=== PATIENT | male | born 1995 | race Caucasian/White ===

== ENCOUNTER 2018-08-25 22:08 | Emergency (ER) | payer MEDICAID, OTHER ==
--- NOTE | 2018-08-26 02:29 | RADIOLOGY REPORT (SQ) ---
EXAM DESCRIPTION: XR CHEST 2 VIEWS COMPLETED DATE/TME: 08/26/2018 01:29 CLINICAL HISTORY: 23 years, Male, SOB Comparison: None FINDINGS: No focal lung consolidation. No pleural effusion. No pneumothorax. Cardiac and mediastinal silhouette is unremarkable. No acute osseous abnormality. Soft tissues are unremarkable. IMPRESSION: No acute findings. No focal lung consolidation.
--- NOTE | 2018-08-26 02:54 | ER Document Report ---
HPI - HPI Patient complains to provider of: cough Time Seen by Provider: 08/26/18 01:29 Pain Level: 0 Context: Patient is a 23-year-old male presents to the emergency department for generalized cough and congestion for the last 2 weeks. Patient is denying any fever, nausea, vomiting, abdominal pain, chest pain, shortness of breath. Patient states he is worried that he may have pneumonia. States he has been using his friend's albuterol treatments and after his albuterol treatment states he typically feels better which is why he presents to the emergency room. Past medical history: None Medications: None Allergies: None - CONSTITUTIONAL Constitutional: DENIES: Fever, Chills - RESPIRATORY Respiratory: REPORTS: Coughing. DENIES: Trouble Breathing Past Medical History - General Information source: Patient - Social History Smoking Status: Current Every Day Smoker Frequency of alcohol use: Rare Drug Abuse: None Family History: Reviewed & Not Pertinent Patient has suicidal ideation: No Patient has homicidal ideation: No Renal/ Medical History: Denies: Hx Peritoneal Dialysis - Immunizations Hx Diphtheria, Pertussis, Tetanus Vaccination: - unk Vertical Provider Document - CONSTITUTIONAL Agree With Documented VS: Yes Notes: GENERAL: Alert, interacts well. No acute distress. HEAD: Normocephalic, atraumatic. No frontal or maxillary sinus tenderness noted EYES: Pupils equal, round, and reactive to light. Extraocular movements intact. ENT: Oral mucosa moist, tongue midline. Nares patent, TM's intact, nonerythematous, nonbulging bilaterally. NECK: Full range of motion. Supple. Trachea midline. No lymphadenopathy appreciated LUNGS: Clear to auscultation bilateral apexes, no wheezes, rales, or rhonchi. Right lower lung clear to auscultation, left lower lung faint end expiratory wheeze noted unable to clear with cough. No respiratory distress. HEART: Regular rate and rhythm. No murmur ABDOMEN: Soft, non-tender. Non-distended. Bowel sounds present in all 4 quadrants. EXTREMITIES: Moves all 4 extremities spontaneously. No edema, normal radial and dorsalis pedis pulses bilaterally. No cyanosis. BACK: no cervical, thoracic, lumbar midline tenderness. No saddle anesthesia, normal distal neurovascular exam. NEUROLOGICAL: Alert and oriented x3. Normal speech. cranial nerves II through XII grossly intact PSYCH: Normal affect, normal mood. SKIN: Warm, dry, normal turgor. No rashes or lesions noted. - INFECTION CONTROL TRAVEL OUTSIDE OF THE [place] IN LAST 30 DAYS: No Course - Re-evaluation Re-evalutation: 08/26/18 02:52 Chest x-ray reveals no signs of pneumonia, pneumothorax, rib fracture. Discussed with patient likely diagnosis of bronchitis. Discussed use of albuterol inhaler and steroids. Discussed close follow-up with primary care provider and return precautions. Patient voices understanding. Stable for discharge. After breathing treatment in the emergency department patient's lung sounds are clear and equal in all leo. Patient continues without respiratory distress, pulse oxygenation stable. - Vital Signs Vital signs: Temp Pulse Resp BP Pulse Ox 97.9 F 88 19 144/89 H 96 08/26/18 01:15 08/26/18 01:15 08/26/18 01:15 08/26/18 01:15 08/26/18 01:15 Discharge - Discharge Clinical Impression: Bronchitis Condition: Stable Disposition: HOME, SELF-CARE Instructions: Bronchitis With Bronchospasm (Wheezing) ([facility]) Additional Instructions: As we discussed you have been seen and treated in the emergency department for bronchitis. These are typically caused by viruses and do not respond to antibiotics. Please take albuterol inhaler as prescribed also take steroids as prescribed. Please follow-up with your primary care provider in the next 24-48 hours. Please return to the emergency room should you have any other concerning symptom Prescriptions: Albuterol Sulfate [Proair HFA Inhalation Aerosol 8.5 gm MDI] 2 puff IH Q4H PRN #1 mdi PRN Reason: Prednisone [Deltasone 20 mg Tablet] 3 tab PO DAILY 5 Days tablet Referrals: CITLALY PAL PA [Primary Care Provider] - Follow up as needed
[2018-08-26] MEDS: IPRATROPIUM/ALBUTEROL 0.5-2.5 MG/3 ML AMPUL NEB ONE (02:58)
[2018-08-26] MEDS: PREDNISONE 20 MG TABLET PO ONE (02:58)
[2018-08-26 03:40] VITALS: BP 122/84
== END 2018-08-26 03:24 | disposition home or self-care (01) ==
LOC: ER 22:08
DX: J40 Bronchitis, not specified as acute or chronic (principal); R05 Cough; R09.81 Nasal congestion; F17.200 Nicotine dependence, unspecified, uncomplicated
CPT/HCPCS: 71046; 94640; 99283; J7512; J7620

== ENCOUNTER 2019-04-07 | Emergency (ER) | payer SELFPAY ==
[2019-04-07] MEDS ORDERED: OXYCODONE-ACETAMINOPHEN 5-325 MG TABLET PO ONE (02:29)
[2019-04-07] MEDS ORDERED: PENICILLIN V POTASSIUM 500 MG TABLET PO ONE (02:29)
--- NOTE | 2019-04-07 02:32 | ER Document Report ---
HPI - HPI Time Seen by Provider: 04/07/19 02:23 Pain Level: 3 Context: Patient is a 23-year-old male that comes to the emergency department for chief complaint of pain to the right upper gumline. He states he has had known dental problems with that area, he states he thinks a wisdom Tooth came in supposed to get pulled and never did. He denies sore throat, neck pain, fever. He denies any other complaints. He does not currently have a dentist. - REPRODUCTIVE Reproductive: DENIES: : Past Medical History - General Information source: Patient - Social History Smoking Status: Current Every Day Smoker Chew tobacco use (# tins/day): No Frequency of alcohol use: None Drug Abuse: Marijuana Lives with: Friend Family History: Reviewed & Not Pertinent Patient has suicidal ideation: No Patient has homicidal ideation: No - Medical History Medical History: Negative Renal/ Medical History: Denies: Hx Peritoneal Dialysis Surgical Hx: Negative - Immunizations Immunizations up to date: Yes Hx Diphtheria, Pertussis, Tetanus Vaccination: Yes - unk Vertical Provider Document - CONSTITUTIONAL General Appearance: WD/WN, No Apparent Distress, Thin - INFECTION CONTROL TRAVEL OUTSIDE OF THE [place] IN LAST 30 DAYS: No - HEENT HEENT: Atraumatic, Normocephalic, PERRLA. negative: Conjuctival Injection, Pharyngeal Exudate, Pharyngeal Tenderness, Pharyngeal Erythema, Tympanic Membrane Red, Tympanic Membrane Bulging Mouth Diagram: 1 - Dental caries with surrounding erythema and tenderness but no induration, fluctuance, swelling. Scattered dental caries otherwise but normal oral pharyngeal exam otherwise - NECK Neck: Normal Inspection, Supple. negative: Lymphadenopathy-Left, Lymphadenopathy-Right - RESPIRATORY Respiratory: Breath Sounds Normal, No Respiratory Distress - CARDIOVASCULAR Cardiovascular: Regular Rate, Regular Rhythm. negative: Tachycardia - GI/ABDOMEN Gastrointestinal: Abdomen Soft, Abdomen Non-Tender - BACK Back: Normal Inspection - MUSCULOSKELETAL/EXTREMETIES Musculoskeletal/Extremeties: MAEW, FROM, Non-Tender - NEURO Level of Consciousness: Awake, Alert, Appropriate - DERM Integumentary: Warm, Dry, No Rash Course - Vital Signs Vital signs: Temp Pulse Resp BP Pulse Ox 98.1 F 123 H 20 152/87 H 97 04/07/19 00:29 04/07/19 00:29 04/07/19 00:29 04/07/19 00:29 04/07/19 00:29 Discharge - Discharge Clinical Impression: Pain, dental, Dental infection Condition: Stable Disposition: HOME, SELF-CARE Additional Instructions: Your evaluation is consistent with a dental infection. Take the antibiotics as prescribed, please follow-up with the dental referral listed below or this will continue to happen. Come back if you are worse including for any concerning or worsening symptoms including swelling of the face. [facility] [address], [address] Prescriptions: Penicillin V Potassium [Penicillin Vk 500 mg Tablet] 500 mg PO BID #20 tablet Forms: Return to Work
[2019-04-07 02:46] VITALS: BP 171/90
== END 2019-04-07 02:45 | disposition home or self-care (01) ==
LOC: ER
DX: K04.7 Periapical abscess without sinus (principal); K02.9 Dental caries, unspecified; F17.200 Nicotine dependence, unspecified, uncomplicated
CPT/HCPCS: 99282